=== PATIENT | male | born 1960 | race Caucasian/White ===

== ENCOUNTER 2025-05-29 09:18 | Outpatient (CLI) | payer MEDICARE, SELFPAY ==
--- NOTE | ~2025-05-29 | US_ITS ---
EXAMINATION: US abdomen complete, 05/29/2025 9:36 CARDIOTHORACIC PHYSIOTHERAPIST HISTORY: Hepatosplenomegaly COMPARISON: None Technique: Clemons-scale and color Doppler images were obtained. Findings: LIVER: Lliver contours intact, no lesions. Normal echogenicity. . GALLBLADDER/BILIARY: Unremarkable.No cholelithiais, wall thickening or pericholecystic fluid. No biliary dilatation. CBD 6 mm. Greeley sign negative. PANCREAS: Unremarkable. SPLEEN: Spleen measures 13.2 cm.. KIDNEYS: Right Kidney: Right kidney 12.5 x 4.6 x 6 cm, normal. Left Kidney: Left kidney 12.2 x 4.6 x 5.2 cm, normal. AORTA: Normal caliber aorta. IVC: Unremarkable. FREE FLUID: None. Impression: Mild splenomegaly Reviewed, dictated and finalized at location P. IOTHORACIC PHYSIOTHERAPIST Impression: Mild splenomegaly
== END 2025-05-29 09:19 | disposition home or self-care (01) ==
LOC: MICIMG 09:19
PROVIDERS: PCP Internal Medicine Infectious Disease; Visit Provider Internal Medicine Infectious Disease
DX: R16.2 Hepatomegaly with splenomegaly, not elsewhere classified (principal)
CPT/HCPCS: 76700